=== PATIENT | female | born 1955 | race African-American/Black ===

== ENCOUNTER 2025-09-24 17:47 | Emergency (ER) | payer MEDICARE, MEDICAID ==
[~2025-09-24] VITALS: Ht 167.6 cm; Wt 76.0 kg
[2025-09-24 17:51] VITALS: O2SAT 100
[2025-09-24] MEDS: KETOROLAC 30MG/ML VIAL IM ONE (20:46)
[2025-09-24] MEDS ORDERED: IBUPROFEN 400MG TABLET PO ONE (21:15)
[2025-09-24] MEDS ORDERED: IOHEXOL-300 100 ML BOTTLE ONE (22:11)
[2025-09-24] MEDS ORDERED: ACET-2708 MT (22:18)
[2025-09-24] MEDS: ACETAMINOPHEN 325MG TABLET PO ONE (22:34)
[2025-09-24 22:41] VITALS: BP 180/90; PULSE 64; RESP 14; TEMP 36.7; O2SAT 100
== END 2025-09-24 22:47 | disposition home or self-care (01) ==
LOC: ER 17:47
DX: S52.571A Other intraarticular fracture of lower end of right radius, initial encounter for closed fracture (principal); S52.611A Displaced fracture of right ulna styloid process, initial encounter for closed fracture; I10 Essential (primary) hypertension; D25.9 Leiomyoma of uterus, unspecified; R51.9 Headache, unspecified; W18.30XA Fall on same level, unspecified, initial encounter; Y93.89 Activity, other specified; Y92.89 Other specified places as the place of occurrence of the external cause; Y99.8 Other external cause status
CPT/HCPCS: 99284; 70450; 73110; 72125; 71250; 74176; 29125; J1885; Q9967; A6449; A4565